=== PATIENT | female | born 1990 | race Caucasian/White ===

== ENCOUNTER 2017-08-14 14:38 | Emergency (ER) | payer OTHER ==
[~2017-08-14] VITALS: Ht 154.9 cm; Wt 86.2 kg
[~2017-08-14 14:38] MED LIST: BIRTH CONTROL PATCH; Bactrim Ds Tab1 EACH PO; Cleocin HCl300 MG PO; METR500 PO; Verotin-Gr Cap1 EACH PO
[2017-08-14] MEDS ORDERED: VALACYCLOVIR1000 MG PO (15:40)
[2017-08-14] MEDS ORDERED: CYCL10 PO (15:40)
[2017-08-14 16:00] LABS: Source, Urine Clean Catch
[2017-08-14 16:29] LABS: Appearance, Urine Clear (Clear); Bilirubin, Urine Neg (Neg); Blood, Urine Neg (Neg); Color, Urine Yellow (P-Yellow); Glucose Qualitative, Urine Neg (Neg); Ketones, Urine 1+ (Neg); Leukocyte Esterase, Urine 2+ (Neg); Nitrite, Urine Neg (Neg); Protein, Urine Neg (Neg); Urobilinogen, Urine NORM (Normal)
[2017-08-14 16:32] LABS: Bacteria Few /hpf; Red Blood Cells, Urine 0-2 /hpf (0-2); Squamous Epithelial Cells Few /hpf (Few); White Blood Cells, Urine 0-2 /hpf (0-5)
== END 2017-08-14 16:01 | disposition home or self-care (01) ==
LOC: ER 14:38
PROVIDERS: Psychiatry & Neurology Psychiatry
DX: M54.10 Radiculopathy, site unspecified (principal); Z88.0 Allergy status to penicillin; Z88.2 Allergy status to sulfonamides
CPT/HCPCS: 81001; 81025; 87086; 99283

== ENCOUNTER 2017-09-21 08:59 | Emergency (ER) | payer OTHER ==
[~2017-09-21] VITALS: Ht 154.9 cm; Wt 83.9 kg
[~2017-09-21 08:59] MED LIST changes: +CYCL10 PO; +VALACYCLOVIR1000 MG PO
[2017-09-21] MEDS ORDERED: IBUP600 PO (09:47)
== END 2017-09-21 10:07 | disposition home or self-care (01) ==
LOC: ER 08:59
DX: G56.03 Carpal tunnel syndrome, bilateral upper limbs (principal); Z88.0 Allergy status to penicillin; Z88.2 Allergy status to sulfonamides; Z79.899 Other long term (current) drug therapy
CPT/HCPCS: 99282